=== PATIENT | male | born 1935 | race Caucasian/White ===

== ENCOUNTER 2018-10-09 16:41 | Emergency (ER) | payer MEDICARE, OTHER ==
[~2018-10-09] VITALS: Ht 182.9 cm; Wt 93.0 kg
[2018-10-09] MEDS ORDERED: OMEPRAZOLE20 MG PO (17:07)
[2018-10-09] MEDS ORDERED: TRIAMTERENE-HC1 EAC3 PO (17:08)
[2018-10-09] MEDS ORDERED: TENORMIN50 MG PO (17:08)
[2018-10-09] MEDS ORDERED: METHOTREXATE2.5 MG PO (17:09)
[2018-10-09] MEDS ORDERED: PREDNISONE20 MG PO (17:09)
[2018-10-09] MEDS ORDERED: FOLIC ACID1 MG PO (17:09)
[2018-10-09] MEDS ORDERED: LOVASTATIN40 MG PO (17:09)
[2018-10-09] MEDS ORDERED: NEURONTIN100 MG PO (17:10)
[2018-10-09] MEDS ORDERED: ONDANSETRON ODT8 MG PO (18:39)
== END 2018-10-09 19:07 | disposition home or self-care (01) ==
LOC: ED 16:41
DX: S06.0X0A Concussion without loss of consciousness, initial encounter (principal); I10 Essential (primary) hypertension; Z91.041 Radiographic dye allergy status; Z79.899 Other long term (current) drug therapy; W18.30XA Fall on same level, unspecified, initial encounter
CPT/HCPCS: 70450; 99284-25

== ENCOUNTER 2021-03-05 11:41 | Emergency (ER) | payer MEDICARE, OTHER ==
[~2021-03-05] VITALS: Ht 182.9 cm; Wt 93.0 kg
[~2021-03-05 11:41] MED LIST: FOLIC ACID1 MG PO; LOVASTATIN40 MG PO; METHOTREXATE2.5 MG PO; NEURONTIN100 MG PO; OMEPRAZOLE20 MG PO; ONDANSETRON ODT8 MG PO; PREDNISONE20 MG PO; TENORMIN50 MG PO; TRIAMTERENE-HC1 EAC3 PO
[2021-03-05] MEDS ORDERED: COLCRYS0.6 MG PO (12:32)
[2021-03-05] MEDS ORDERED: METHYLPREDNISOLO4 M1 PO (17:01)
== END 2021-03-05 17:45 | disposition home or self-care (01) ==
LOC: ED 11:41
DX: R29.898 Other symptoms and signs involving the musculoskeletal system (principal); M51.36 Other intervertebral disc degeneration, lumbar region; I10 Essential (primary) hypertension; Z88.8 Allergy status to other drugs, medicaments and biological substances; Z88.1 Allergy status to other antibiotic agents; Z79.899 Other long term (current) drug therapy; Z79.52 Long term (current) use of systemic steroids
CPT/HCPCS: 70450; 72148; 99285-25; J7512

== ENCOUNTER 2021-12-12 16:43 | Emergency (ER) | payer MEDICARE, OTHER ==
[~2021-12-12] VITALS: Ht 182.9 cm; Wt 88.9 kg
[~2021-12-12 16:43] MED LIST changes: +COLCRYS0.6 MG PO; +CYCLOBENZAPRINE10 MG PO; +HYDROCHLOROTHIA25 MG PO; +METHYLPREDNISOLO4 M1 PO; +MIRALAX119 GM PO; +NYSTATIN100000 UN1 PO; +OMEPRAZOLE40 MG PO; +OXYCODONE HCL5 MG PO; +PREDNISONE5 MG PO; +SENOKOT-S TABL1 EACH PO
--- NOTE | 2021-12-12 20:48 | EKG ---
[facility] [address] [facility] [place] [address] Signed Sinus rhythm with sinus arrhythmia with occasional premature ventricular complexes Otherwise normal ECG No previous ECGs available Confirmed by Ga Ayala MD () on 12/12/2021 8:48:07 PM Electronically Signed By: GA AYALA MD 12/12/212047 PATIENT NAME: JACKELIN WAHL Electrocardiogram DATE OF : 39 PHYSICIAN: GA AYALA MD REPORT #: [id number] REPORT IS CONFIDENTIAL AND NOT TO BE RELEASED WITHOUT AUTHORIZATION
== END 2021-12-12 19:54 | disposition home or self-care (01) ==
LOC: ED 16:43
DX: S16.1XXA Strain of muscle, fascia and tendon at neck level, initial encounter (principal); I10 Essential (primary) hypertension; M10.9 Gout, unspecified; E78.5 Hyperlipidemia, unspecified; Z88.1 Allergy status to other antibiotic agents; Z91.048 Other nonmedicinal substance allergy status; Z79.899 Other long term (current) drug therapy; W19.XXXA Unspecified fall, initial encounter
CPT/HCPCS: 36415; 70450; 71045; 72125; 80053; 81001; 84484; 85025; 93005; 93010; 99284-25

== ENCOUNTER 2021-12-24 15:23 | Emergency (ER) | payer MEDICARE, OTHER ==
[~2021-12-24] VITALS: Ht 182.9 cm; Wt 88.9 kg
--- OUTSIDE RECORDS SUMMARY | 2021-12-24 15:27 | XMS ---
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 Nigel has no Care Guidelines for this patient. Rinku VISIT COUNT (12 MO.) 4 [facility] [place]. TOTAL 4 NOTE: Visits indicate total known visits. ED/C VISIT TRACKING (12 MO.) 12/24/2021 15:23 [facility] [place] TYPE: Emergency COMPLAINT: - WEAKNESS 12/12/2021 16:44 [facility] [place] TYPE: Emergency COMPLAINT: - FALL DIAGNOSES: - Essential (primary) hypertension - Other nonmedicinal substance allergy status - Hyperlipidemia, unspecified - Allergy status to other antibiotic agents - Strain of muscle, fascia and tendon at neck level, initial encounter - Other terminal manager (current) drug therapy - Unspecified fall, initial encounter - Gout, unspecified 06/01/2021 16:11 [facility] [place] TYPE: Emergency COMPLAINT: - DEHYDRATION 03/05/2021 11:42 [facility] [place] TYPE: Emergency COMPLAINT: - UNABLE TO WALK DIAGNOSES: - MCFP (current) use of systemic steroids - Other symptoms and signs involving the musculoskeletal system - Other terminal manager (current) drug therapy - Allergy status to other drugs, medicaments and biological substances - Other symptoms and signs involving the musculoskeletal system - Allergy status to other antibiotic agents - Essential (primary) hypertension - Weakness - Other intervertebral disc degeneration, lumbar region INPATIENT VISIT TRACKING (12 MO.) 06/01/2021 16:[address] [facility] [place] TYPE: Observation COMPLAINT: - POSTOPERATIVE HYPOPHARYNGEAL EDEMA DIAGNOSES: - Allergy status to other antibiotic agents - Gastro-esophageal reflux disease without esophagitis - Allergy status to other drugs, medicaments and biological substances - Hyperlipidemia, unspecified - Contact with and (suspected) exposure to COVID-19 - Essential (primary) hypertension - Restless legs syndrome - Other postprocedural complications and disorders of respiratory system, not elsewhere classified - Other surgical procedures as the cause of abnormal reaction of the patient, or of later complication, without mention of misadventure at the time of the procedure - Gout, unspecified - Other diseases of pharynx - Arthrodesis status [email or web address]
--- NOTE | 2021-12-27 13:54 | EKG ---
[facility] [address] [facility] [place] [address] Signed Normal sinus rhythm Nonspecific T wave abnormality Abnormal ECG When compared with ECG of 12-DEC-2021 18:35, premature ventricular complexes are no longer present Nonspecific T wave abnormality, improved in Inferior leads Confirmed by KAI HUGHES MD ([id number]) on 12/27/2021 1:54:11 PM Electronically Signed By: KAI HUGHES MD 12/27/21 1354 PATIENT NAME: JACKELIN WAHL Electrocardiogram DATE OF : 39 PHYSICIAN: KAI HUGHES MD REPORT #: [id number] REPORT IS CONFIDENTIAL AND NOT TO BE RELEASED WITHOUT AUTHORIZATION
== END 2021-12-24 18:50 | disposition home or self-care (01) ==
LOC: ED 15:23
DX: U07.1 COVID-19 (principal); I10 Essential (primary) hypertension; E78.5 Hyperlipidemia, unspecified; M10.9 Gout, unspecified; Z88.1 Allergy status to other antibiotic agents; Z91.048 Other nonmedicinal substance allergy status; Z79.899 Other long term (current) drug therapy
CPT/HCPCS: 36415; 70450; 70496; 70498; 71045; 80053; 81003; 83605; 85025; 87502; 93005; 93010; 99285-25; C9803; J7030; Q9967; U0003

== ENCOUNTER 2023-06-04 13:33 | Emergency (ER) | payer MEDICARE, OTHER ==
[~2023-06-04] VITALS: Ht 182.9 cm; Wt 96.0 kg
[2023-06-04] MEDS ORDERED: DIPHTH,PERTUSS(ACELL),TET VAC 0.5 ML SYRINGE IM ONE (14:00)
[2023-06-04 14:59] VITALS: BP 120/73
== END 2023-06-04 14:59 | disposition home or self-care (01) ==
LOC: ED 13:33
DX: S00.03XA Contusion of scalp, initial encounter (principal); I48.91 Unspecified atrial fibrillation; I10 Essential (primary) hypertension; Z96.652 Presence of left artificial knee joint; Z96.641 Presence of right artificial hip joint; Z91.048 Other nonmedicinal substance allergy status; Z79.52 Long term (current) use of systemic steroids; Z79.899 Other long term (current) drug therapy; Z79.01 Long term (current) use of anticoagulants; W22.09XA Striking against other stationary object, initial encounter
CPT/HCPCS: 70450; 90471; 90715; 99283-25